=== PATIENT | female | born 1955 | race Caucasian/White ===

== ENCOUNTER 2023-10-11 16:24 | Outpatient (CLI) | payer MEDICAID, MEDICARE | END 2023-10-11 23:59 | disposition home or self-care (01) | LOC: RAD 16:24 | PROVIDERS: ATTEND Student in an Organized Health Care Education/Training Program | DX: M50.30 Other cervical disc degeneration, unspecified cervical region (principal); R20.0 Anesthesia of skin | CPT/HCPCS: 72040 ==